=== PATIENT | male | born 1990 | race Caucasian/White ===

== ENCOUNTER 2018-09-25 00:07 | Inpatient (IN) | payer OTHER ==
--- NOTE | ~2018-09-25 | EKG ---
[place], [place] ELECTROCARDIOGRAM REPORT NAME: MORTEZA BANUELOS UNIT #: [id number] ROOM: 426 DOCTOR: MAXINE DRAFT REPORT BIRTHDATE: [birth year] [facility] Test Date: 2018-09-25 Test Time: 01:13:40 Pat Name: MORTEZA BANUELOS Department: Room: 426 Gender: M [employer] Officer: Bisi Chatterjee : 1990 Requested By: PAYAL SALINAS Order Number: [id number] Reading MD: Danielle Crum MD Measurements Intervals [place] Rate: 88 P: 52 LA: 114 QRS: 62 QRSD: 95 T: 24 QT: 332 QTc: 402 Interpretive Statements Sinus rhythm Borderline short [place] interval Electronically Signed On 09-25-2018 12:18:41 PST by Danielle Crum MD CM:EKGRPT:ELECTROCARDIOGRAM REPORT [id number] PAYAL OSHEA DRAFT REPORT PAYAL SALINAS DO
[2018-09-25 00:10] VITALS: BP 136/72
[2018-09-25 00:48] LABS: BASO # 0.1 10*3/uL (0.0-0.1); BASO % 0.5 % (0.0-1.0); EOS # 0.1 10*3/uL (0.0-0.4); EOS % 0.8 % (1.0-4.0); HEMATOCRIT 47.3 % (42.0-52.0); HEMOGLOBIN 16.6 g/dl (14.0-18.0); LYMPH # 3.2 10*3/uL (1.3-4.4); MEAN CELL VOLUME 92.7 fl (80.0-94.0); MEAN CORPUSCULAR HGB 32.5 pg (27.0-31.0); MEAN CORPUSCULAR HGB CONC 35.1 g/dl (33.0-37.0); MONO # 0.7 10*3/uL (0.1-1.0); MONO % 6.7 % (3.0-9.0); NEUT # 6.9 10*3/uL (2.3-7.9); NEUT % 62.6 % (47.0-73.0); PLATELET COUNT AUTOMATED 328 10*3/uL (130-400); RED CELL DISTRI WIDTH 11.2 % (0-14.5); WHITE BLOOD COUNT 11.1 10*3/uL (4.8-10.8)
[2018-09-25 01:03] LABS: ALBUMIN 3.6 gm/dl (3.1-4.5); ALKALINE PHOSPHATASE 63 U/L (45-117); BUN 13 mg/dl (7-24); CHLORIDE 106 mmol/L (98-107); CREATININE 0.73 mg/dL (0.70-1.30); POTASSIUM 3.6 mmol/L (3.5-5.1); SGOT/AST 11 IU/L (3-35); SGPT/ALT 23 U/L (12-78); SODIUM 141 mmol/L (136-145); TOTAL PROTEIN 6.5 gm/dL (6.4-8.2)
[2018-09-25 01:57] VITALS: BP 124/68
[2018-09-25 01:57] LABS: URINE AMPHETAMINES > 1000 (1000ng/ml); URINE BARBITURATES < 200 (200ng/ml); URINE BENZODIAZEPINES < 200 (200ng/ml); URINE CANNABINOIDS (THC) < 50 (50ng/ml); URINE COCAINE < 300 (300ng/ml); URINE METHADONE < 300 (300ng/ml); URINE OPIATES < 300 (300ng/ml); URINE PHENCYCLIDINE < 25 (25ng/ml)
[2018-09-25 08:00] VITALS: BP 105/69
[2018-09-25 12:00] VITALS: BP 126/89
[2018-09-25 16:00] VITALS: BP 100/86
[2018-09-25 20:00] VITALS: BP 111/75
[2018-09-26] VITALS: BP 102/87
[2018-09-26 08:00] VITALS: BP 106/59
[2018-09-26 12:00] VITALS: BP 102/67
[2018-09-26 16:00] VITALS: BP 125/71
[2018-09-26 20:00] VITALS: BP 112/69
[2018-09-27] VITALS: BP 112/58
[2018-09-27 08:00] VITALS: BP 119/72
[2018-09-27 12:00] VITALS: BP 108/62
[2018-09-27 16:00] VITALS: BP 109/67
[2018-09-27 20:00] VITALS: BP 93/69
[2018-09-28] VITALS: BP 115/68
[2018-09-28 06:13] LABS: BASO % 0.5 % (0.0-1.0); EOS # 0.1 10*3/uL (0.0-0.4); EOS % 2.4 % (1.0-4.0); HEMATOCRIT 45.1 % (42.0-52.0); HEMOGLOBIN 15.1 g/dl (14.0-18.0); LYMPH # 2.9 10*3/uL (1.3-4.4); LYMPH % 48.9 % (27.0-41.0); MEAN CELL VOLUME 95.1 fl (80.0-94.0); MEAN CORPUSCULAR HGB 31.9 pg (27.0-31.0); MEAN CORPUSCULAR HGB CONC 33.5 g/dl (33.0-37.0); MEAN PLATELET VOLUME 9.1 fl (9.6-12.3); MONO # 0.9 10*3/uL (0.1-1.0); MONO % 14.8 % (3.0-9.0); NEUT # 1.9 10*3/uL (2.3-7.9); NEUT % 33.1 % (47.0-73.0); PLATELET COUNT AUTOMATED 274 10*3/uL (130-400); RED BLOOD COUNT 4.74 10*6/uL (4.50-5.90); WHITE BLOOD COUNT 5.9 10*3/uL (4.8-10.8)
[2018-09-28 06:39] LABS: CREATININE 0.84 mg/dL (0.70-1.30)
[2018-09-28 08:00] VITALS: BP 112/65
[2018-09-28] MEDS ORDERED: METHOCARBAMOL750 M1 PO (10:37)
[2018-09-28] MEDS ORDERED: ROPINIROLE HYD0.5 MG PO (10:37)
[2018-09-28] MEDS ORDERED: ZOFRAN 4 MG ED2 TAB PO (10:38)
== END 2018-09-28 11:45 | disposition home or self-care (01) | DRG 897 ==
LOC: ED 00:07 → EDHOLD 00:46 → 4E 00:46
PROVIDERS: Physician Assistant; ADMIT Internal Medicine
DX: F11.23 Opioid dependence with withdrawal (principal); F15.20 Other stimulant dependence, uncomplicated; F41.9 Anxiety disorder, unspecified; Z71.6 Tobacco abuse counseling; F32.9 Major depressive disorder, single episode, unspecified; F17.200 Nicotine dependence, unspecified, uncomplicated; D72.829 Elevated white blood cell count, unspecified